=== PATIENT | female | born 1940 | race Caucasian/White ===

== ENCOUNTER 2021-06-30 14:00 | Inpatient (IN) | payer OTHER, MEDICARE, BC ==
[~2021-06-30 14:00] MED LIST: Iopamidol 370 76% 100 ML VIAL ONE
[2021-06-30] MEDS ORDERED: Atropine Sulfate 1 mg/10 ml Syringe ONE (14:25)
[2021-06-30 14:39] LABS: #Monocytes 0.4 thou/uL (0.11-0.59); #Neutrophils 3.6 thou/uL (1.40-6.50); %Basophils 0.7 % (0.0-1.0); %Eosinophils 13.6 % (0.0-10.0); %Lymphocytes 28.2 % (21.0-51.0); %Monocytes 6.1 % (0.0-10.0); %Neutrophils 51.4 % (42.0-75.0); Hemoglobin 13.6 g/dL (12.0-16.0); Mean Corpuscular HGB CONC 34.4 g/dL (32.0-36.0); Platelet Count 187 thou/uL (130-400); RBC Distribution Width 15.6 % (11.5-14.5); Red Blood Cell (RBC) Count 3.69 mill/uL (4.20-5.40)
[2021-06-30 14:54] LABS: MDiff Complete? YES; Macrocytosis SLIGHT = 6-15 cells (100X) (0-5/hpf); Ovalocytes SLIGHT = 2-5 cells (100X) (0-1/hpf); Platelet Morphology Comment Appears Adequate; Polychromasia SLIGHT = 2-3 cells (100X) (0-2/hpf)
[2021-06-30] MEDS ORDERED: Fentanyl 100 MCG/2 ML VIAL ONE (15:00)
[2021-06-30] MEDS ORDERED: Aspirin Chewable 81 MG TAB ONE (15:01)
[2021-06-30] MEDS ORDERED: Ondansetron PF 4 MG/2 ML Vial ONE (15:01)
[2021-06-30 15:02] LABS: ALT (SGPT) 15 U/L (8-55); AST (SGOT) 24 U/L (5-34); Albumin 4.1 g/dL (3.4-4.8); Alkaline Phosphatase 78 U/L (40-110); Anion Gap 18 mmol/L (10-20); BUN (Urea Nitrogen) 12 mg/dL (9.8-20.1); Bilirubin, Total 0.7 mg/dL (0.2-1.2); Calc. Creatinine Clearance 0 mL/min (70-130); Calcium 8.6 mg/dL (7.8-10.44); Carbon Dioxide 21 mmol/L (23-31); Chloride 105 mmol/L (98-107); Globulin 2.6 g/dL (2.4-3.5); Glucose 112 mg/dL (83-110); Potassium 4.5 mmol/L (3.5-5.1); Protein, Total 6.7 g/dL (5.8-8.1); Sodium 139 mmol/L (136-145)
[2021-06-30] MEDS ORDERED: Morphine 4 MG/ML VIAL ONE (16:50)
[2021-06-30 18:03] LABS: INR-International Normal Ratio 1.4; Prothrombin Time 17.5 sec (12.0-14.7)
[2021-06-30 18:04] LABS: PTT 49.4 sec (22.9-36.1)
[2021-06-30 18:41] LABS: Magnesium 1.8 mg/dL (1.6-2.6); Phosphorus 4.5 mg/dL (2.3-4.7)
[2021-06-30] MEDS ORDERED: Ondansetron ODT 4 MG TAB PO PRN (18:45)
[2021-06-30] MEDS ORDERED: Dextrose 5% in Water 1,000 ML IV PRN (18:45)
[2021-06-30] MEDS ORDERED: Dextrose 50% Abboject 50 ML SYRINGE SLOW IVP PRN (18:45)
[2021-06-30] MEDS ORDERED: Ketorolac Tromethamine 30 MG/ML VIAL ONE (18:52)
[2021-06-30] MEDS ORDERED: Magnesium 2 GM/50 ML 2 GM in Premix Bag 1 BAG IVPB SCH (19:00)
[2021-06-30] MEDS ORDERED: Cyclobenzaprine 10 MG TAB PO PRN (20:43)
[2021-06-30 20:51] VITALS: BMI 335.8
[2021-06-30] MEDS ORDERED: Gabapentin 100 MG CAP PO SCH (21:00)
[2021-06-30] MEDS: Morphine 4 MG/ML VIAL SLOW IVP PRN ×2 (21:11→23:06)
[2021-06-30 21:28] LABS: Troponin I 0.018 ng/mL (< 0.028)
[2021-06-30] MEDS: Senokot S 8.6-50 MG TAB PO SCH (21:47)
[2021-06-30] MEDS: Famotidine 20 MG TAB PO SCH (21:47)
[2021-06-30] MEDS: Acetaminophen 500 MG TAB PO SCH (21:48)
[2021-06-30] MEDS: traMADol HCl 50 MG TAB PO SCH (21:49)
[2021-07-01] MEDS: Morphine 4 MG/ML VIAL SLOW IVP PRN (01:55)
[2021-07-01] MEDS: Acetaminophen 500 MG TAB PO SCH ×4 (02:34→23:21)
[2021-07-01] MEDS: traMADol HCl 50 MG TAB PO SCH ×4 (02:37→23:20)
[2021-07-01] MEDS: traMADol HCl 50 MG TAB PO PRN (02:38)
[2021-07-01 05:00] LABS: #Basophils 0.1 thou/uL (0.0-0.2); #Eosinphils 0.9 thou/uL (0.0-0.7); #Lymphocytes 1.6 thou/uL (1.20-3.40); #Monocytes 0.4 thou/uL (0.11-0.59); #Neutrophils 3.2 thou/uL (1.40-6.50); %Basophils 1.2 % (0.0-1.0); %Eosinophils 13.9 % (0.0-10.0); %Lymphocytes 25.8 % (21.0-51.0); %Monocytes 7.2 % (0.0-10.0); %Neutrophils 51.9 % (42.0-75.0); Hemoglobin 12.4 g/dL (12.0-16.0); Mean Corpuscular HGB CONC 31.8 g/dL (32.0-36.0); Mean Corpuscular Hemoglobin 34.8 pg (27.0-31.0); Mean Platelet Volume 8.1 fL (7.4-10.4); Platelet Count 170 thou/uL (130-400); RBC Distribution Width 15.7 % (11.5-14.5); Red Blood Cell (RBC) Count 3.56 mill/uL (4.20-5.40); White Blood Cell (WBC) Count 6.2 thou/uL (4.8-10.8)
[2021-07-01 05:29] LABS: Anion Gap 7 mmol/L (10-20); BUN (Urea Nitrogen) 17 mg/dL (9.8-20.1); Calc. Creatinine Clearance 682 mL/min (70-130); Calcium 8.3 mg/dL (7.8-10.44); Carbon Dioxide 31 mmol/L (23-31); Chloride 105 mmol/L (98-107); Glucose 94 mg/dL (83-110); Magnesium 2.5 mg/dL (1.6-2.6); Phosphorus 5.9 mg/dL (2.3-4.7); Potassium 4.5 mmol/L (3.5-5.1); Sodium 138 mmol/L (136-145)
[2021-07-01] MEDS ORDERED: Non-Formulary Item 1 EACH (Buspirone Hcl [Buspirone Hcl] 15 MG Tablet) PO SCH (09:00)
[2021-07-01] MEDS: Gabapentin 100 MG CAP PO SCH ×3 (10:21→23:18)
[2021-07-01] MEDS: busPIRone HCl 5 MG TAB PO SCH ×2 (10:22→23:21)
[2021-07-01] MEDS: Famotidine 20 MG TAB PO SCH ×2 (10:23→23:19)
[2021-07-01] MEDS: Senokot S 8.6-50 MG TAB PO SCH ×2 (10:23→23:22)
[2021-07-01] MEDS: Digoxin 0.25 MG TAB PO SCH (10:24)
[2021-07-01] MEDS: Polyethylene Glycol 3350 17 GM Packet PO SCH (10:24)
[2021-07-01 19:08] LABS: SARS-CoV-2 PCR by NAA Not Detected (NotDetected)
[2021-07-01] MEDS ORDERED: [UNRECOGNIZED DRUG - OTHER] PO SCH (21:00)
[2021-07-01] MEDS ORDERED: Ezetimibe 10 MG TAB PO SCH (21:00)
[2021-07-01] MEDS ORDERED: SIMVASTATIN PO SCH (21:00)
[2021-07-01] MEDS ORDERED: Simvastatin 10 MG TAB PO SCH (21:00)
[2021-07-01] MEDS ORDERED: Simvastatin 40 MG TAB PO SCH (21:00)
[2021-07-01] MEDS ORDERED: EZETIMIBE PO SCH (21:00)
[2021-07-02] MEDS: Acetaminophen 500 MG TAB PO SCH ×2 (02:00→08:18)
[2021-07-02] MEDS: traMADol HCl 50 MG TAB PO SCH ×3 (02:00→12:35)
[2021-07-02] MEDS: Digoxin 0.25 MG TAB PO SCH (08:18)
[2021-07-02] MEDS: Gabapentin 100 MG CAP PO SCH (08:20)
[2021-07-02] MEDS: Famotidine 20 MG TAB PO SCH (08:20)
[2021-07-02] MEDS: Polyethylene Glycol 3350 17 GM Packet PO SCH (08:21)
[2021-07-02] MEDS: Senokot S 8.6-50 MG TAB PO SCH (08:21)
[2021-07-02] MEDS: busPIRone HCl 5 MG TAB PO SCH (09:40)
[2021-07-02 11:39] VITALS: BP 106/67; TEMP 97.7
[2021-07-02] MEDS: traMADol HCl 50 MG TAB PO PRN (12:36)
== END 2021-07-02 14:38 | disposition home or self-care (01) | DRG 566 ==
LOC: ERS 14:00 → 2NO 18:48 → SURG B 07-01 20:15 → OBSVTOIN 07-02 11:56
PROVIDERS: ADMIT Surgery; ATTEND Surgery
DX: S22.20XA Unspecified fracture of sternum, initial encounter for closed fracture (principal); Z20.822 Contact with and (suspected) exposure to COVID-19; I48.91 Unspecified atrial fibrillation; F41.9 Anxiety disorder, unspecified; F32.A Depression, unspecified; V89.2XXA Person injured in unspecified motor-vehicle accident, traffic, initial encounter; Z95.0 Presence of cardiac pacemaker; Z88.5 Allergy status to narcotic agent
CPT/HCPCS: 36415; 70450; 71045; 71275; 74174; 80048; 80053; 83735; 83880; 84100; 84484; 85025; 85610; 85730; 93005; 96374; 96375; 96376; G0378; G0390; J0461; J1885; J2270; J2405; J3010; J3475; Q9967; U0003; U0005